=== PATIENT | female | born 1975 | race Caucasian/White ===

== ENCOUNTER 2017-08-24 11:10 | Emergency (ER) | payer BC ==
[2017-08-24] MEDS ORDERED: NS 0.9% 1000 ML* 1,000 ML IV ONE (13:15)
[2017-08-24] MEDS ORDERED: Morphine INJ* 4 MG/ML 1 ML CARPUJECT IV ONE ×2 (13:15→15:27)
[2017-08-24] MEDS ORDERED: Ondansetron INJ* 2 MG/ML VIAL IV ONE ×2 (13:15→15:27)
--- NOTE | 2017-08-24 13:54 | ED ---
Back Pain - HPI Summary HPI Summary: Patient with a history of hydronephrosis, kidney stones, and ureteral stents presents to the ED with bilateral flank pain which is worse on the right since 2 days ago. She denies any urinary symptoms or obstructive symptoms, but states she feels she may be having some decreased urination. She is a patient of Dr. Vasquez. She denies any fevers, sweats, chills. She has been feeling otherwise well. Pain is rated a 8 out of 10 diffusely across the mid to low back radiating to the right flank and to the right upper quadrant. Pain is aggravated with deep breaths, and relieved with rest. She has not taken anything for pain. Allergic to Toradol. Denies any history of blood clots, calf pain, recent travel or recent illness. Denies any shortness of breath, chest pain. [id number] smoking history. Denies history of COPD or asthma. Denies any known cardiac problems. - History of Current Complaint Chief Complaint: EDBackInjuryPain Stated Complaint: COUGH, CONGESTION Time Seen by Provider: 08/24/17 12:42 Hx Obtained From: Patient Onset/Duration: Sudden Onset Onset/Duration: Started Hours Ago Timing: Constant Back Pain Location: Is Diffuse Severity Initially: Moderate Severity Currently: Moderate Pain Intensity: 6 Pain Scale Used: 0-10 Numeric Character: Aching Aggravating Symptom(s): Movement Alleviating Symptom(s): Rest Associated Signs And Symptoms: Positive: Negative. Negative: Weakness, Numbness , Tingling, Bladder Incontinence, Weight Loss, Pain with Weight Bearing - Risk Factors AAA Risk Factors: Negative TAD Risk Factors: Negative Cauda Equina Risk Factors: Negative Epidural Abscess Risk Factors: Negative - Allergies/Home Medications Allergies/Adverse Reactions: Allergies Allergy/AdvReac Type Severity Reaction Status Date / Time MS Ketorolac Tromethamine Allergy SEVERE Verified 01/13/16 18:45 [From Toradol] HEARTBURN MS Sulfa Drugs Allergy Hives Verified 01/13/16 18:45 MS Varenicline [From Chantix] Allergy Unknown Verified 01/13/16 18:45 Reaction Details PMH/Surg Hx/FS Hx/Imm Hx Previously Healthy: Yes Endocrine/Hematology History: Denies: Hx Diabetes, Hx Anemia GI History: Denies: Hx Jaundice History: Reports: Hx Kidney Stones, Hx Renal Disease - HYDRONEPHROSIS, Other Problems/Disorders - surgery ureter, stents multiple x and hx stones Sensory History: Reports: Hx Contacts or Glasses - DRIVING GLASSES Denies: Hx Hearing Aid Opthamlomology History: Reports: Hx Contacts or Glasses - DRIVING GLASSES Psychiatric History: Reports: Hx Anxiety - NO MEDICATION FOR- PATIENT STATES IS WELL CONTROLLED - Surgical History Surgery Procedure, Year, and Place: kidney ureter bypass 2007, states needs a stent placed about every year r/t blockage and hydronephrosis. Hx Anesthesia Reactions: No - Immunization History Hx Pertussis Vaccination: No Immunizations Up to Date: Unable to Obtain/Confirm Infectious Disease History: No Infectious Disease History: Denies: Traveled Outside the [place] in Last 30 Days - Family History Known Family History: Positive: Hypertension - Social History Occupation: Employed Full-time Lives: With Family Alcohol Use: Weekly Hx Substance Use: No Substance Use Type: Reports: None Hx Tobacco Use: Yes Smoking Status (MU): Heavy Every Day Tobacco Smoker Type: Cigarettes Amount Used/How Often: 1/2 PPD X 15 YEARS Have You Smoked in the Last Year: Yes Review of Systems Negative: Fever, Chills, Fatigue, Skin Diaphoresis ENT: Negative Positive: Chest Pain. Negative: Palpitations Negative: Shortness Of Breath, Cough Positive: Abdominal Pain - right upper quadrant radiated from right upper back Positive: no symptoms reported, see HPI Musculoskeletal: Negative - accident 01 Positive: Myalgia - bilateral upper to lower back pain which radiates over to the right upper quadrant and mid sternal chest Neurological: Negative All Other Systems Reviewed And Are Negative: Yes Physical Exam Triage Information Reviewed: Yes Vital Signs On Initial Exam: Initial Vitals Temp Pulse Resp BP Pulse Ox 99.6 F 95 18 120/83 97 08/24/17 11:23 08/24/17 11:23 08/24/17 11:23 08/24/17 11:23 08/24/17 11:23 Vital Signs Reviewed: Yes Appearance: Positive: Well-Appearing, Well-Nourished Skin: Positive: Warm, Skin Color Reflects Adequate Perfusion Head/Face: Positive: Normal Head/Face Inspection Eyes: Positive: EOMI, ERICKA Neck: Positive: Supple, No Lymphadenopathy Respiratory/Lung Sounds: Positive: Clear to Auscultation, Breath Sounds Present Cardiovascular: Positive: RRR, Pulses are Symmetrical in both Upper and Lower Extremities Abdomen Description: Positive: Nontender, No Organomegaly, Soft Musculoskeletal: Positive: Normal, Strength/ROM Intact, Other - Right CVA tenderness Neurological: Positive: Normal Psychiatric: Positive: Normal AVPU Assessment: Alert Diagnostics - Vital Signs Vital Signs Temp Pulse Resp BP Pulse Ox 08/24/17 13:42 18 08/24/17 12:53 85 100 08/24/17 11:23 99.6 F 95 18 120/83 97 - Laboratory Result Diagrams: 08/24/17 13:55 08/24/17 13:55 Lab Statement: Any lab studies that have been ordered have been reviewed, and results considered in the medical decision making process. Back Pain Course/Dx - Course Course Of Treatment: During the course of treatment, the patient is evaluated for mid to low back pain radiating to the right upper quadrant without urinary symptoms. History of hydronephrosis, kidney stones and ureteral stents with 2 separate procedures. She denies any fevers. She is a patient of Dr. Becerril. On arrival, she is given 1 L fluids, labs obtained and given 4 mg IV Zofran and 4 mg IV morphine with relief. CT abd/pelvis obtained which shows:IMPRESSION: RIGHT-SIDED EFFUSION AND BASILAR ATELECTASIS. NO CT EVIDENCE OF UROLITHIASIS. Chest x-ray obtained to evaluate for atelectasis and pleural effusion. She endorses mild discomfort to the mid sternal chest which has not been present 2 days. Denies any known cardiac problems, the patient is a [id number] history smoker. Denies any travel or calf pain. Pain is not worse with inspiration and is intermittent. She denies any left or right anterolateral chest pain, and discomfort does not radiate to the back. X-ray shows trace bilateral pleural effusions. BNP is 41 and EKG shows normal sinus rhythm rate of 62. Interpreted by Dr. Gabe Wilson. Dr. Wilson consult it on this patient and advised a CT chest with contrast IV. Impression is small right pleural effusion and trace left pleural effusion. Stable left lower lobe pulmonary nodule. Bilateral thyroid nodules and recommend an outpatient thyroid ultrasound for further evaluation. D-dimer obtained and is 253. Walks patient around the ED pulse ox maintained at 98 with heart rate jumping from 68 to 81. This is likely inconsistent with PE. We will refer to PCP. She is given pain control and will return to the ED for any shortness of breath, chest pain or any worsening or differing symptoms. I have advised she follow up with PCP regarding these issues early next week and she agrees. Vital signs remained stable. I have discussed the possibility diffuse mid to low back pain is likely muscular and she should use heating pads for relief. She is given azithromycin 5 days for coexisting infection causing pleural effusion, although no definite pneumonia or other infection has been identified at this time. - Diagnoses Provider Diagnoses: Pleural effusion Discharge - Discharge Plan Condition: Stable Disposition: HOME Prescriptions: Azithromyxin MARTIN (NF) [Z-Martin (Zithromax) 250 mg tabs #6] 2 tab PO .TODAY, THEN 1 DAILY #6 tab Hydrocodone-Acetaminophen [Hydrocodone/Acetaminophen 10-325 mg] 1 tab PO QID # 12 tab MDD 4 Patient Education Materials: Pleural Effusion (ED) Referrals: Tiffanie Rodriguez MD [Primary Care Provider] - Additional Instructions: Follow-up with your PCP as soon as possible Please inform him of our findings today As discussed, there is a small right-sided pleural effusion Also, as discussed, please follow up with her PCP regarding the slightly elevated lab test to assess for a blood clot I am placing you on antibiotics for a possible pleural infusion due to infection If you develop any worsening symptoms despite pain medication, return to the ED immediately If you develop any shortness of breath or chest pain, return to the ED immediately Ibuprofen 600 mg 3 times daily intermittently between the pain medication
[2017-08-24 14:02] LABS: ABS Basophils 0.1 10^3/ul (0-0.2); ABS Eosinophils 0.2 10^3/ul (0-0.6); ABS Lymphocytes 1.9 10^3/ul (1.0-4.8); ABS Monocytes 0.7 10^3/ul (0-0.8); ABS Neutrophils 6.5 10^3/ul (1.5-7.7); ABS Nucleated RBC 0 10^3/ul; Eosinophil % 1.7 % (0-6); Hematocrit 41 % (35-47); Mean Corpuscular HGB Conc 34 g/dl (31-36); Mean Corpuscular Hemoglobin 34 pg (27-31); Mean Corpuscular Volume 100 fL (80-97); Mean Platelet Volume 8 um3 (7.4-10.4); Nucleated Red Blood Cells % 0; Platelet Count 208 10^3/ul (150-450); Red Blood Count 4.07 10^6/ul (4.0-5.4); Red Cell Distribution Width 13 % (10.5-15); White Blood Count 9.3 10^3/ul (3.5-10.8)
[2017-08-24 14:16] LABS: EGFR Non-African American 193.4 (>60)
--- NOTE | 2017-08-24 14:21 | RAD ---
INDICATION: Right flank pain COMPARISON: CT October 28, 2013 TECHNIQUE: Noncontrast axial source images were acquired from the level hemidiaphragms to the symphysis pubis as part of CT imaging for renal stone. Lung bases: There is a small cyst right-sided pleural effusion with right basilar atelectasis. Liver: The liver is normal in size. Noncontrast imaging shows no evidence of a hepatic mass or ductal dilatation. Gallbladder: There are no calcified gallstones. There is no evidence of wall thickening or pericholecystic fluid.. Spleen: The spleen is normal in size. The noncontrast CT appearance is normal. Pancreas: Noncontrast imaging shows no pancreatic mass or ductal dilitation. Adrenal glands: No masses are identified. Kidneys/Bladder: There is no evidence of nephrolithiasis or CT evidence of hydronephrosis. Noncontrast imaging shows no evidence of a renal mass. 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 The bladder is unremarkable.. Adenopathy: There is no evidence of intraperitoneal or retroperitoneal adenopathy. Evaluation is limited without oral contrast. Fluid collections: There are no free or localized fluid collections. Vessels: The aorta and iliac vessels are normal in caliber. There are no significant atherosclerotic changes. The IVC appears normal Pelvic organs: The uterus and adnexa appear normal GI tract: Evaluation of the bowel is limited without oral contrast. The stomach, small bowel, and lower GI tract appear grossly normal. There are no obstructive findings. The appendix is visualized and appears normal. Soft tissues: No soft tissue abnormalities of the extraperitoneal abdomen or pelvis are identified. Osseous structures: There are no acute osseous findings. IMPRESSION: RIGHT-SIDED EFFUSION AND BASILAR ATELECTASIS. NO CT EVIDENCE OF UROLITHIASIS.
[2017-08-24] MEDS ORDERED: Ibuprofen TAB* 600 MG PO ONE (15:26)
--- NOTE | 2017-08-24 16:01 | RAD ---
INDICATION: Right-sided effusion. COMPARISON: Comparison is made with a prior CT of the abdomen and pelvis from August 24, 2017 and a chest x-ray study from December 04, 2013. TECHNIQUE: Dual-energy PA and lateral views of the chest were obtained. FINDINGS: The heart is within normal limits in size. Mediastinal and hilar contours appear within normal limits. The lungs are clear. There are trace bilateral pleural effusions. IMPRESSION: TRACE BILATERAL PLEURAL EFFUSIONS.
[2017-08-24 16:25] LABS: Urine Appearance Clear; Urine Blood 1+ (Negative); Urine Color Yellow; Urine Ketones 1+ (Negative); Urine Protein Negative (Negative); Urine Urobilinogen Negative (Negative)
[2017-08-24] MEDS ORDERED: Iohexol 300* (CONTRAST) 10 ML SDV IV ONE (17:26)
[2017-08-24] MEDS ORDERED: Iohexol 300* (CONTRAST) 10 ML SDV IV SCH (18:00)
--- NOTE | 2017-08-24 18:00 | RAD ---
INDICATION: Pleural effusion. COMPARISON: Comparison is made with a prior CT of the chest from October 28, 2013. TECHNIQUE: A CT scan of the chest was performed with intravenous contrast following intravenous injection of 80 ml of Omnipaque 300 nonionic contrast. Contiguous axial sections were obtained from the lung apices through the lung bases. Images were reconstructed in the coronal and sagittal planes. FINDINGS: There is a small 6 mm nodular density present in the left lower lobe best seen on image #46 which is unchanged from the prior exam. There is minimal dependent bilateral lower lobe subsegmental atelectasis. No other infiltrates are seen. There is a small right pleural effusion and a trace left pleural effusion. No significant enlarged mediastinal or hilar lymph nodes are seen. There are bilateral thyroid nodules measuring up to 1.5 cm in size. The heart is within normal limits in size. No pericardial effusion is present. The thoracic aorta is normal in caliber. No significant focal osseous abnormality is seen. IMPRESSION: 1. SMALL RIGHT PLEURAL EFFUSION AND TRACE LEFT PLEURAL EFFUSION. 2. STABLE LEFT LOWER LOBE PULMONARY NODULE. 3. BILATERAL THYROID NODULES. RECOMMEND AN OUTPATIENT THYROID ULTRASOUND FOR FURTHER EVALUATION.
--- NOTE | 2017-08-24 18:03 | RAD ---
INDICATION: Right upper quadrant pain. COMPARISON: Comparison is made with a prior CT of the abdomen and pelvis from every first 2018. TECHNIQUE: Multiple real-time images of the right upper quadrant were obtained. FINDINGS: The gallbladder appear normal. No gallbladder wall thickening or pericholecystic fluid is present. No intra or extrahepatic ductal distention is present. The common bile duct measured 0.4 cm in diameter. The liver is normal in size without significant focal abnormality. The pancreas is partially obscured by overlying bowel gas. The right kidney is normal in size without evidence for hydronephrosis. Incidental note is made of a prominent right renal pelvis. IMPRESSION: NEGATIVE EXAM.
[2017-08-24] MEDS ORDERED: HYDROcodone/ACETAMIN 5-325 MG* 1 TAB PO ONE (18:43)
[2017-08-24 20:13] VITALS: BP 111/70
== END 2017-08-24 20:16 | disposition home or self-care (01) ==
LOC: ED 11:10
DX: J90 Pleural effusion, not elsewhere classified (principal); R07.9 Chest pain, unspecified; F17.210 Nicotine dependence, cigarettes, uncomplicated
CPT/HCPCS: 36415; 71046; 71260; 74176; 76705; 80053; 81003; 81015; 83880; 85025; 85379; 86140; 93005; 96374; 96375; 99284; A9270-GY; J2270; J2405; Q9967

== ENCOUNTER 2017-11-29 09:34 | Emergency (ER) | payer BC ==
[2017-11-29 09:54] VITALS: BP 122/90
--- NOTE | 2017-11-29 10:48 | RAD ---
Indication: Flank pain, kidney stone. CT of the abdomen and pelvis was performed without oral or IV contrast administration. Coronal and sagittal reconstructed images were obtained. Comparison is made with previous exam dated August 24, 2017. The lung bases demonstrate no pleural fluid, nodules or masses. Heart is of normal size without evidence of pericardial effusion. The liver is normal in size. No focal lesions or intrahepatic ductal dilatation is noted. The spleen is normal in size. No adrenal masses are noted. The kidneys demonstrates fullness of the right renal collecting system which is unchanged from previous exam. Patient does have history of right-sided UPJ obstruction. Findings are similar to that seen on previous exam. No obvious calculi is noted.. No retroperitoneal lymphadenopathy is noted. No dilated loops of bowel are noted. The colon is filled with stool. CT of the pelvis demonstrates no retroperitoneal or pelvic adenopathy. Urinary bladder is unremarkable. No hernias are noted. The colon is filled with stool. The uterus and ovaries are unremarkable. There is likely a right-sided extrarenal pelvis. No evidence of obstructive uropathy is noted. IMPRESSION: No evidence of obstructive uropathy is noted although there is a prominent right-sided renal pelvis consistent with patient's history of right-sided ureteropelvic junction obstruction. Right ovarian cyst is noted measuring up to 2.4 cm
--- NOTE | 2017-11-29 10:50 | UC ---
Complaint Female HPI - HPI Summary HPI Summary: Patient is a 41-year-old female with a history of kidney stones, hydronephrosis and UTIs who presents to the with chief complaint of gross hematuria and right-sided flank pain 3 days. Denies any fevers, sweats, chills. Back pain is rated a 5 out of 10, constant and throbbing. She endorses burning, urgency, frequency. She is seen Dr. Vasquez, her urologist and has had 2 stent placements in the past. Denies any abdominal pain, nausea or vomiting. She denies any other symptoms at this time. - History Of Current Complaint Hx Obtained From: Patient ?: No Onset/Duration: Sudden Onset Timing: Constant Severity Initially: Moderate Severity Currently: Moderate Pain Intensity: 8 Pain Scale Used: 0-10 Numeric Character: Burning Alleviating Factor(s): Position Associated Signs And Symptoms: Negative: Fever, Back Pain, Vaginal Bleeding/ Discharge, Genital Swelling, Genital Blisters - Risk Factors Ectopic Risk Factor: Negative Ovarian Torsion Risk Factor: Negative <Angelic Brennan - Last Filed: 11/29/17 11:15> <Ligia Cruz - Last Filed: 11/29/17 11:22> - History Of Current Complaint Chief Complaint: UCGU Stated Complaint: BACK PAIN BLOOD IN URINE Time Seen by Provider: 11/29/17 09:53 - Allergies/Home Medications Allergies/Adverse Reactions: Allergies Allergy/AdvReac Type Severity Reaction Status Date / Time ketorolac [From Toradol] Allergy See Comment Verified 11/29/17 09:55 Sulfa (Sulfonamide Allergy Hives Verified 11/29/17 09:55 Antibiotics) varenicline [From Chantix] Allergy See Comment Verified 11/29/17 09:55 PMH/Surg Hx/FS Hx/Imm Hx Previously Healthy: Yes - Surgical History Surgical History: Yes Surgery Procedure, Year, and Place: kidney ureter bypass 2007, states needs a stent placed about every year r/t blockage and hydronephrosis. - Family History Known Family History: Positive: Hypertension - Social History Occupation: Employed Full-time Lives: With Family Alcohol Use: Weekly Substance Use Type: None Smoking Status (MU): Heavy Every Day Tobacco Smoker Type: Cigarettes Amount Used/How Often: 1/2 PPD X 15 YEARS Have You Smoked in the Last Year: Yes Household Exposure Type: Cigarettes <Mika,Angelic B - Last Filed: 11/29/17 11:15> Review of Systems Constitutional: Negative Skin: Negative Respiratory: Negative Cardiovascular: Negative Gastrointestinal: Abdominal Pain - R sided flank pain Genitourinary: Dysuria, Hematuria, Frequency, Urgency Motor: Negative Neurovascular: Negative Neurological: Negative Is Patient Immunocompromised?: No All Other Systems Reviewed And Are Negative: Yes <Angelic Brennan - Last Filed: 11/29/17 11:15> Physical Exam Triage Information Reviewed: Yes Appearance: Well-Appearing, Well-Nourished Vital Signs: Initial Vital Signs Temp 98.3 F 11/29/17 09:51 Pulse 107 11/29/17 09:51 Resp 18 11/29/17 09:51 BP 122/90 11/29/17 09:51 Pulse Ox 99 11/29/17 09:51 Vital Signs Reviewed: Yes Eye Exam: Normal Eyes: Positive: Conjunctiva Clear Neck exam: Normal Neck: Positive: Supple, No Lymphadenopathy Respiratory: Positive: Chest non-tender Abdomen Description: Positive: Soft, CVA Tenderness (R) Bowel Sounds: Positive: Present Musculoskeletal Exam: Normal Musculoskeletal: Positive: Strength Intact Neurological: Positive: Alert Psychological: Positive: Normal Response To Family Skin Exam: Normal <Angelic Brennan - Last Filed: 11/29/17 11:15> Vital Signs: Initial Vital Signs Temp 98.3 F 11/29/17 09:51 Pulse 107 11/29/17 09:51 Resp 18 11/29/17 09:51 BP 122/90 11/29/17 09:51 Pulse Ox 99 11/29/17 09:51 <Ligia Cruz - Last Filed: 11/29/17 11:22> Complaint Female Dx - Course Course Of Treatment: During the course of treatment, the patient is evaluated for gross hematuria, and UTI symptoms and right-sided flank pain. She is sent to CT abdomen/pelvis to rule out hydronephrosis or kidney stone. UA shows 2+ leukocytes and gross hematuria. CT abdomen and pelvis shows: IMPRESSION: No evidence of obstructive uropathy is noted although there is a prominent. right- sided renal pelvis consistent with patient's history of right-sided ureteropelvic. junction obstruction. Right ovarian cyst is noted measuring up to 2.4 cm. Patient is diagnosed with UTI. I have referred her back to Dr. Vasquez for a follow-up of her CT. She is given ciprofloxacin twice daily 7 days. She is also given Pyridium for urinary discomfort. - Differential Dx/Diagnosis Provider Diagnoses: UTI <Angelic Brennan - Last Filed: 11/29/17 11:15> Discharge - Sign-Out/Discharge Documenting (check all that apply): Discharge/Admit/Transfer - Billing Disposition and Condition Condition: STABLE Disposition: HOME <Angelic Brennan - Last Filed: 11/29/17 11:15> - Billing Disposition and Condition Condition: STABLE Disposition: HOME <Ligia Cruz - Last Filed: 11/29/17 11:22> - Discharge Plan Condition: Stable Disposition: HOME Prescriptions: Ciprofloxacin TAB* [Cipro 500 MG TAB*] 500 mg PO BID #14 tab Phenazopyridine TAB* [Pyridium 100 mg TAB*] 100 mg PO TID #12 tab Patient Education Materials: Urinary Tract Infection in Women (ED) Referrals: Tiffanie Rodriguez MD [Primary Care Provider] - Sherman Vasquez MD [Medical Doctor] - Additional Instructions: Please follow-up with Dr. Vasquez Ciprofloxacin twice daily 7 days Pyridium up to 3 times daily for any urinary discomfort Attestation Statement User Type: Provider - I was available for consult. This patient was seen by the JOYCE. The patient was not presented to, seen by, or examined by me. -Ljj <Ligia Cruz - Last Filed: 11/29/17 11:22>
--- NOTE | 2017-11-30 16:09 | PN ---
Progress Note - Progress Note Date of Service: 11/30/17 Note: urine culture grew e coli 25-50,000. patient [address] on cipro. will wait for final culture.
== END 2017-11-29 11:03 | disposition home or self-care (01) ==
LOC: UCEAST 09:34
DX: N39.0 Urinary tract infection, site not specified (principal); B96.20 Unspecified Escherichia coli [E. coli] as the cause of diseases classified elsewhere; R31.0 Gross hematuria; Z87.440 Personal history of urinary (tract) infections; Z87.442 Personal history of urinary calculi; Z88.5 Allergy status to narcotic agent; Z88.2 Allergy status to sulfonamides; Z88.8 Allergy status to other drugs, medicaments and biological substances; F17.210 Nicotine dependence, cigarettes, uncomplicated
CPT/HCPCS: 74176; 81003; 87077; 87086; 87186; 99212; G0463

== ENCOUNTER 2019-02-20 05:27 | Observation (INO) | payer BC ==
[~2019-02-20 05:27] MED LIST: Buffered Lidocaine 1% SYRIN* 1 ML/SYRINGE INTRADERM ONE
[2019-02-20] MEDS ORDERED: Dexamethasone IV* 4 MG/ML 1 ML (4 MG) IV SLOW PU ONE (06:00)
[2019-02-20] MEDS ORDERED: Scopolamine 1.5 mg* PATCH TRANSDERM ONE (06:00)
[2019-02-20] MEDS ORDERED: Famotidine IV* 10 MG/ML 2 ML (20 mg) IV ONE (06:00)
[2019-02-20] MEDS ORDERED: Lactated Ringers 1000 ML Bag* 1,000 ML IV SCH ×2 (06:00→11:00)
[2019-02-20] MEDS ORDERED: Dexamethasone IV* 4 MG/ML 1 ML (4 MG) ONE (06:13)
[2019-02-20] MEDS ORDERED: Scopolamine 1.5 mg* PATCH ONE (06:14)
[2019-02-20] MEDS ORDERED: Buffered Lidocaine 1% SYRIN* 1 ML/SYRINGE INTRADERM ONE (06:14)
[2019-02-20] MEDS ORDERED: Famotidine IV* 10 MG/ML 2 ML (20 mg) ONE (06:14)
[2019-02-20] MEDS ORDERED: Midazolam* 1 MG/ML 5 ML VIAL (5 MG) ONE (07:06)
[2019-02-20] MEDS ORDERED: fentaNYL* 50 MCG/ML 5 ML VIAL (250 MCG VIAL) ONE (07:06)
[2019-02-20] MEDS ORDERED: Rocuronium* 10 MG/ML VIAL ONE (07:06)
[2019-02-20] MEDS ORDERED: Propofol* 10 MG/ML 20 ML BTL ONE (07:06)
[2019-02-20] MEDS ORDERED: Lidocaine 2% PF * 5 ML VIAL ONE (07:06)
[2019-02-20] MEDS ORDERED: Naloxone* 0.4 MG/ML 1 ML VIAL IV PRN (07:35)
[2019-02-20] MEDS ORDERED: Ibuprofen TAB* 600 MG PO PRN (07:35)
[2019-02-20] MEDS ORDERED: PROCHLORPERAZINE INJ 5 MG/ML 2 ML VIAL IV PRN (07:35)
[2019-02-20] MEDS ORDERED: HYDROcodone/ACETAMIN 5-325 MG* 1 TAB PO PRN (07:35)
[2019-02-20] MEDS ORDERED: ceFOXitin 2 GM IVPREMIX* 2 GM/50 ML BAG ONE (07:45)
[2019-02-20] MEDS ORDERED: EPHEDrine (Pressors)* 50 MG/ML VIAL ONE (08:22)
[2019-02-20] MEDS ORDERED: Bupivacaine 0.5% W/EPI SDV* 30 ML VIAL ONE (08:29)
[2019-02-20] MEDS ORDERED: KETAMINE HCL* 50 MG/ML 10 ML VIAL ONE (09:17)
[2019-02-20] MEDS ORDERED: Ondansetron INJ* 2 MG/ML VIAL ONE ×2 (09:52→10:34)
[2019-02-20] MEDS ORDERED: fentaNYL* 50 MCG/ML 2 ML VIAL (100 MCG VIAL) ONE ×3 (09:57→11:00)
[2019-02-20] MEDS ORDERED: Ondansetron INJ* 2 MG/ML VIAL IV PRN (10:16)
[2019-02-20] MEDS: fentaNYL* 50 MCG/ML 2 ML VIAL (100 MCG VIAL) IV PRN ×4 (10:35→11:29)
[2019-02-20] MEDS ORDERED: PROCHLORPERAZINE INJ 5 MG/ML 2 ML VIAL ONE (10:57)
[2019-02-20] MEDS ORDERED: oxyCODONE/Acetamin 5/325 MG* TAB ONE ×2 (11:49→12:05)
[2019-02-20] MEDS: oxyCODONE/Acetamin 5/325 MG* TAB PO PRN ×3 (11:50→19:39)
[2019-02-20] MEDS: Ibuprofen TAB* 600 MG PO PRN ×2 (14:08→19:40)
[2019-02-20] MEDS ORDERED: HYDROmorphone INJ1* 1 MG/ML SYRINGE IV SLOW PU PRN (15:00)
[2019-02-21] MEDS: oxyCODONE/Acetamin 5/325 MG* TAB PO PRN ×4 (00:06→16:08)
[2019-02-21] MEDS: Ibuprofen TAB* 600 MG PO PRN ×2 (05:13→12:48)
[2019-02-21 06:08] LABS: ABS Eosinophils 0.1 10^3/ul (0-0.6); ABS Lymphocytes 2.1 10^3/ul (1.0-4.8); ABS Monocytes 0.7 10^3/ul (0-0.8); ABS Neutrophils 6.1 10^3/ul (1.5-7.7); Eosinophil % 0.8 %; Hematocrit 37 % (35-47); Hemoglobin 12.6 g/dL (12.0-16.0); Lymphocyte % 23.3 %; Mean Corpuscular HGB Conc 34 g/dL (31-36); Mean Corpuscular Hemoglobin 35 pg (27-31); Mean Corpuscular Volume 103 fL (80-97); Platelet Count 161 10^3/uL (150-450); Red Cell Distribution Width 14 % (10-15); White Blood Count 9.1 10^3/uL (3.5-10.8)
[2019-02-21] MEDS ORDERED: Docusate CAP* 100 MG PO PRN (07:43)
[2019-02-21] MEDS ORDERED: Bisacodyl SUPP* 10 MG SUPP PR ONE (07:43)
[2019-02-21] MEDS ORDERED: Simethicone TAB* 80 MG TAB.CHEW PO PRN (07:44)
--- NOTE | 2019-02-21 07:54 | PN ---
Progress Note - Progress Note Date of Service: 02/21/19 SOAP: Subjective: [Patient s/p Laparoscopic supreacervical hysterectomy, B/L salpingectomy. She is tolerating regular diet, denies Chest pain/ SOB, N/V/D, admits to abdominal bloating and gas discomfort/pain] Objective: [ Vital Signs Temp Pulse Resp BP Pulse Ox 98.8 F 55 15 92/53 97 02/21/19 03:05 02/21/19 03:05 02/21/19 07:41 02/21/19 03:05 02/21/19 03:05 Lungs CTA b/l , no CVA tenderness CV RRR Abdomen is distended, soft, normal bowel sounds, appropriately tender, no rebound or guarding noted. Umbilical incision is clean/dry/intact with no discharge, erythema or induration. Laboratory Results - last 24 hr 02/21/19 05:07 WBC 9.1 RBC 3.60 L Hgb 12.6 Hct 37 MCV 103 H MCH 35 H MCHC 34 RDW 14 Plt Count 161 MPV 9.0 Neut % (Auto) 67.5 Lymph % (Auto) 23.3 Door % (Auto) 8.0 Eos % (Auto) 0.8 Baso % (Auto) 0.4 Absolute Neuts (auto) 6.1 Absolute Lymphs (auto) 2.1 Absolute Monos (auto) 0.7 Absolute Eos (auto) 0.1 Absolute Basos (auto) 0.0 Absolute Nucleated RBC 0.0 Nucleated RBC % 0.0 ] Assessment: [Abdominal distension with normal vityals, CBC, non acutre abdomen, patient admits to chronic constipation also may be secondary to narcotics.] Plan: [Discontinue dilaudid, stool softener, trial of laxative suppository, continue observation and reasses at noon.]
[2019-02-21 11:42] VITALS: BP 113/70
[2019-02-23] MEDS ORDERED: Scopolamine PATCH Remove* 1 NOTE MISC PATCH OFF ONE (06:00)
--- NOTE | 2019-02-26 15:07 | OP ---
CC: Dr. Akhtar, [facility] * DATE OF OPERATION: 02/20/19 - ROOM #351 DATE OF : 77 SURGEON: Philip Pool MD. LASER SET UP OPERATOR: Dr. Akhtar. ANESTHESIA: General anesthetic with endotracheal intubation. PRE-OP DIAGNOSES: Chronic pelvic pain and menometrorrhagia. POST-OP DIAGNOSES: Chronic pelvic pain and menometrorrhagia. OPERATIVE PROCEDURE: Laparoscopic supracervical hysterectomy and bilateral salpingectomy. ESTIMATED BLOOD LOSS: Less than 5 cc. SPECIMEN SENT TO PATHOLOGY: Morcellated uterus and right and left fallopian tubes. FLUID: She received 1450 cc of IV crystalloid fluid. URINE OUTPUT: 1200 cc of clear urine. FINDINGS: Laparoscopically, the patient was noted to have a globular, round, 10 - to 12-week size uterus. There were no obvious lesions. Normal adnexa, normal bowel, and normal bladder, and there were no complications. DESCRIPTION OF PROCEDURE: The patient was taken to the operating room where she was identified. She was placed on the operating table where a general anesthetic with endotracheal intubation was obtained without difficulty. She was then placed in the dorsal lithotomy position, prepped and draped in normal sterile fashion. Attention was then brought onto the patient's perineum, where the bladder was catheterized with a Patino catheter and drained of clear urine. A speculum was inserted into the patient's vagina. The cervix was identified and grasped with a single-tooth tenaculum, and through the cervix, a uterine manipulator was introduced and the manipulator was insufflated with 3 cc of sterile water. The speculum was then removed as well as the single-tooth tenaculum with the uterine manipulator left in situ. At this point, attention was then brought on to the patient's abdomen where a 2-cm infraumbilical skin incision was made with a knife, carried through to the underlying layer of facia. The facia was then grasped with Freedom clamps, brought up to the incision, incised vertically and the incision on the fascia was made about 4 cm in length. The peritoneum was identified, entered bluntly with a Ronna clamp through the peritoneum. Through this umbilical incision, a single site operative GelPort was introduced. The GelPort was then attached to insufflation and the patient's abdomen was then insufflated with CO2 gas . Through the GelPort, there had been 3 trocars that had been placed in a triangular position. A 5-mm laparoscope was introduced through the trocar. The patient was placed in a slight Trendelenburg position and a survey of the patient's pelvic organs revealed findings as noted above. At this point, we proceeded to perform our procedure. We started the procedure by removing the fallopian tubes bilaterally. The patient's fallopian tubes were grasped at their distal end, and using a LigaSure device, the mesosalpinx was serially coagulated and cut with the LigaSure until we were able to remove the fallopian tubes bilaterally in their entirety. They were removed from the patient's abdomen and sent to Pathology. At this point, the round ligaments were grasped bilaterally with the LigaSure device, coagulated, and transected. The same was done for the uteroovarian ligaments bilaterally. A window was then made at the anterior leaf of the broad ligament using the LigaSure device. The broad ligament was then incised inferiorly and a bladder flap was created. The bladder was mobilized from the lower uterine segment away from the cervix. The uterine arteries were then identified bilaterally. They were grasped with the LigaSure device at the uterocervical junction. They were then coagulated. This was done . They were then transected just below the uterocervical aspect of the uterus. At this point, the uterus was noted to have lost its blood supply. We then proceeded to introduce a SuperLoop through the GelPOINT port. The loop was then wrapped around the upper most aspect of the cervix just below the uterocervical junction and above where the uterine arteries had been transected. The uterine manipulator was then removed. The loop was set at a 100 pure cut setting. It was then turned on and the uterus was then transected from the cervix. At this point, the uterus was then placed into an Endobag. After removal of the GelPort, Endobag was brought up to the umbilical incision and the uterus was then morcellated using sharp scissors. The uterus was then removed from the abdomen and sent to Pathology. The bag where the uterus had been removed was removed. It was noted to be intact. At this point , all the instruments and the GelPOINT port had been removed from the patient's abdomen. The fascia was closed at the umbilicus with 0 Polysorb suture in a running fashion and the skin was closed with 4-0 Monocryl subcuticular stitch. The Patino catheter was removed. The patient tolerated the procedure well. Sponge, lap, and needle counts were correct x2. She was then transferred to the recovery room area in stable condition. [id number] #: [id number] MTDD
--- NOTE | 2019-02-26 15:07 | DS ---
DISCHARGE SUMMARY: DATE OF ADMISSION: 02/20/19 DATE OF DISCHARGE: 02/21/19 HISTORY OF PRESENT ILLNESS/HOSPITAL COURSE: Ms. Begum is a 43-year-old who was admitted on 02/20/19 with complaints of chronic pelvic pain and abnormal uterine bleeding consistent with menorrhagia for surgical treatment. On the day of admission, she underwent a laparoscopic supracervical hysterectomy, bilateral salpingectomy, which was uneventful and without complications. After the surgery, she was transferred to the recovery room area where she was recuperating well and was then admitted under observation to the surgical stay unit. In the surgical stay unit, the patient remained afebrile. On postop day #1, she was tolerating a regular diet, she was out of bed and ambulating without difficulty, and she was taking p.o. medications. A CBC on her date of discharge was within normal limits with hemoglobin and hematocrit of 12.6/37 and her vital signs remained stable and she was afebrile. She was therefore discharged home to follow up at my office 1 week after her surgery. Please refer to the patient's chart for a complete history and physical as well as operative report. [id number] #: [id number] MTDD
== END 2019-02-21 16:20 | disposition home or self-care (01) ==
LOC: OR 05:27 → SSU 10:16
PROVIDERS: ADMIT Obstetrics & Gynecology; ATTEND Obstetrics & Gynecology
PROC: 0UT74ZZ Resection of Bilateral Fallopian Tubes, Percutaneous Endoscopic Approach (ICD-10-PCS; 2019-02-20)
PROC: 0UT94ZL Resection of Uterus, Supracervical, Percutaneous Endoscopic Approach (ICD-10-PCS; principal; 2019-02-20 07:30)
DX: N94.6 Dysmenorrhea, unspecified (principal); N92.0 Excessive and frequent menstruation with regular cycle; R10.2 Pelvic and perineal pain; G89.29 Other chronic pain; F41.9 Anxiety disorder, unspecified; F32.9 Major depressive disorder, single episode, unspecified; Z88.2 Allergy status to sulfonamides; Z88.8 Allergy status to other drugs, medicaments and biological substances
CPT/HCPCS: 36415; 85025; 88307; 96374; 96375; A9270-GY; G0378; J0694; J0780; J1100; J1170; J2250; J2405; J2704; J3010

== ENCOUNTER 2019-06-13 10:10 | Emergency (ER) | payer BC ==
--- NOTE | 2019-06-13 12:39 | UC ---
Respiratory Complaint HPI - HPI Summary HPI Summary: 43 yo female with a week hx of cough/congestion and sore throat. works at [employer] office ? fever - History of Current Complaint Chief Complaint: UCRespiratory Stated Complaint: URI Time Seen by Provider: 06/13/19 12:17 Hx Obtained From: Patient Onset/Duration: Sudden Onset, Lasting Days Timing: Constant Severity Initially: Moderate Pain Intensity: 5 Pain Scale Used: 0-10 Numeric Character: Cough: Nonproductive Aggravating Factors: Nothing Alleviating Factors: Bronchodilator Associated Signs And Symptoms: Positive: Fever, Nasal Congestion, Hoarseness. Negative: Dyspnea, Pleuritic Chest Pain, Wheezing, Dizziness, Calf Pain, Calf Swelling, Edema, Sinus Discomfort - Allergies/Home Medications Allergies/Adverse Reactions: Allergies Allergy/AdvReac Type Severity Reaction Status Date / Time ketorolac [From Toradol] Allergy See Comment Verified 06/13/19 12:06 Sulfa (Sulfonamide Allergy Hives Verified 06/13/19 12:06 Antibiotics) varenicline [From Chantix] Allergy See Comment Verified 06/13/19 12:06 Home Medications: Home Medications Ibuprofen TAB* [Motrin TAB* 600 MG] 800 mg PO Q6H PRN 06/13/19 [History Confirmed 06/13/19] PMH/Surg Hx/FS Hx/Imm Hx Previously Healthy: Yes - Surgical History Surgical History: Yes Surgery Procedure, Year, and Place: kidney ureter bypass 2007, states needs a stent placed about every year r/t blockage and hydronephrosis-NONE IN THE PAST 2 -3 YEARS-ALL PROCEDURES DONE AT [facility] [place]- DR. COLINDRES. hysterectomy - Family History Known Family History: Positive: Hypertension, Non-Contributory - Social History Alcohol Use: Occasionally Substance Use Type: None Smoking Status (MU): Heavy Every Day Tobacco Smoker Type: Cigarettes Amount Used/How Often: 1/2 PPD X 20+ YEARS Have You Smoked in the Last Year: Yes Household Exposure Type: Cigarettes Review of Systems All Other Systems Reviewed And Are Negative: Yes Constitutional: Positive: Fatigue Skin: Positive: Negative Eyes: Positive: Negative ENT: Positive: Sore Throat, Nasal Discharge Respiratory: Positive: Cough Cardiovascular: Positive: Negative Gastrointestinal: Positive: Negative Genitourinary: Positive: Negative Motor: Positive: Negative Neurovascular: Positive: Negative Musculoskeletal: Positive: Negative Neurological: Positive: Negative Psychological: Positive: Negative Physical Exam Triage Information Reviewed: Yes Appearance: Well-Appearing, No Pain Distress, Well-Nourished Vital Signs: Initial Vital Signs Temp 98.8 F 06/13/19 12:03 Pulse 88 06/13/19 12:03 Resp 18 06/13/19 12:03 BP 123/73 06/13/19 12:03 Pulse Ox 99 06/13/19 12:03 Vital Signs Reviewed: Yes Eyes: Positive: Conjunctiva Clear ENT: Positive: Hearing grossly normal, Pharyngeal erythema, Nasal congestion, Nasal drainage, Uvula midline. Negative: Tonsillar swelling, Tonsillar exudate , Trismus, Hoarse voice Dental Exam: Normal Neck: Positive: Supple, Enlarged Nodes @ - ant cerv Respiratory: Positive: Lungs clear, Normal breath sounds, No respiratory distress, No accessory muscle use Cardiovascular: Positive: RRR, No Murmur Bowel Sounds: Positive: Present Musculoskeletal: Positive: ROM Intact, No Edema Neurological: Positive: Alert Psychological Exam: Normal Skin Exam: Normal Diagnostics - Laboratory Lab Results: strep negative Respiratory Course/Dx - Differential Dx/Diagnosis Provider Diagnosis: Viral upper respiratory infection Discharge ED - Sign-Out/Discharge Documenting (check all that apply): Patient Departure All imaging exams completed and their final reports reviewed: No Studies - Discharge Plan Condition: Stable Disposition: HOME Patient Education Materials: Upper Respiratory Infection (ED) Forms: *Work Release Referrals: Tiffanie Rodriguez MD [Primary Care Provider] - 4 Days (if not better) Additional Instructions: rest fluids tylenol recheck for worsening symptoms or if not better in 3-4 days - Billing Disposition and Condition Condition: STABLE Disposition: Home
[2019-06-13 13:28] VITALS: BP 108/62
== END 2019-06-13 13:28 | disposition home or self-care (01) ==
LOC: UCEAST 10:10
DX: J06.9 Acute upper respiratory infection, unspecified (principal); F17.210 Nicotine dependence, cigarettes, uncomplicated; R53.83 Other fatigue; Z88.6 Allergy status to analgesic agent; Z88.2 Allergy status to sulfonamides; Z88.8 Allergy status to other drugs, medicaments and biological substances
CPT/HCPCS: 87651; 99211; G0463